=== PATIENT | male | born 1970 | race Caucasian/White ===

== ENCOUNTER 2018-12-03 23:38 | Emergency (ER) | payer OTHER ==
--- NOTE | 2018-12-04 00:06 | ED ---
Complex/Multi-Sys Presentation - HPI Summary HPI Summary: This patient is a 48 year old M BIBA to ED via EMS with a chief complaint of tremors since 2199. Earlier today, [place] the entire time, but did not have water after returning. He finished the run at noon. Today patient had three glasses of wine and three beers over six hours since 1529. While getting ready for bed, patient developed leg tremors. Eventually, the tremors progressed to his whole body. Patient iced his legs for an hour straight. He reports feeling really cold. In the ED room, patient reports feeling out of it. Patient reports CP, SOB, dizziness, abdominal fullness, nausea, subjective fever. Patient denies vomiting. The patient rates the pain 6/10 in severity. Symptoms aggravated by nothing. Symptoms alleviated by nothing. - History Of Current Complaint Chief Complaint: EDChestPainROMI Time Seen by Provider: 12/03/18 23:54 Hx Obtained From: Patient Onset/Duration: Sudden Onset, Lasting Hours - Since 2199, Worse Since Timing: Constant Severity Currently: Mild Severity Initially: Mild Location: Pain At: - CP Aggravating Factor(s): Nothing Alleviating Factor(s): Nothing Associated Signs And Symptoms: Positive: Dizziness, SOB, Chest Pain, Nausea, Abdominal Pain - "Fullness", Fever, Other - Body tremors. Negative: Vomiting - Allergies/Home Medications Allergies/Adverse Reactions: Allergies Allergy/AdvReac Type Severity Reaction Status Date / Time Penicillins Allergy Unknown Verified 12/03/18 23:42 Reaction Details Home Medications: Home Medications ALPRAZolam TAB* [Xanax TAB*] 0.25 mg PO Q6H PRN 12/03/18 [History Confirmed 06/22] Sertraline* [Zoloft*] 150 mg PO DAILY 12/03/18 [History Confirmed 12/03/18] PMH/Surg Hx/FS Hx/Imm Hx Cardiovascular History: Denies: Hx Angina, Hx Congenital Heart Disease Respiratory History: Denies: Hx Asthma GI History: Reports: Hx Gastroesophageal Reflux Disease - Surgical History Surgery Procedure, Year, and Place: Left knee (1995) Infectious Disease History: No Infectious Disease History: Denies: Traveled Outside the [place] in Last 30 Days - Family History Known Family History: Positive: Other - Colon cancer in mother father and sister - Social History Alcohol Use: Weekly - Beer mostly Hx Substance Use: No Substance Use Type: Reports: None Hx Tobacco Use: No Smoking Status (MU): Never Smoked Tobacco Review of Systems Positive: Fever - Subjective, Chills Positive: Chest Pain Positive: Shortness Of Breath Positive: Abdominal Pain - "Fullness", Nausea. Negative: Vomiting Musculoskeletal: Other - Leg tremors/shakes that spread to entire body Neurological: Other - Dizziness All Other Systems Reviewed And Are Negative: Yes Physical Exam - Summary Physical Exam Summary: Appearance: Well-appearing, Well-nourished, lying in bed comfortable Skin: Warm, dry, no obvious rash Eyes: sclera anicteric, no conjunctival pallor ENT: mucous membranes moist Neck: deferred Respiratory: No signs of respiratory distress Cardiovascular: Appears well perfused, pulses are nml Abdomen: deferred Musculoskeletal: Moving all 4 extremities without obvious discomfort Neurological: Awake and alert, mentation is normal, speech is fluent and appropriate Psychiatric: affect is normal, does not appear anxious or depressed Triage Information Reviewed: Yes Vital Signs On Initial Exam: Initial Vitals Temp Pulse Resp BP Pulse Ox 99.4 F 82 22 137/95 99 12/03/18 23:39 12/03/18 23:39 12/03/18 23:39 12/03/18 23:39 12/03/18 23:39 Vital Signs Reviewed: Yes Diagnostics - Vital Signs Vital Signs Temp Pulse Resp BP Pulse Ox 12/03/18 23:39 99.4 F 82 22 137/95 99 - Laboratory Result Diagrams: 12/04/18 00:35 12/04/18 00:35 Lab Statement: Any lab studies that have been ordered have been reviewed, and results considered in the medical decision making process. - Radiology CXR Radiology Interpretation Completed By: ED Physician Summary of Radiographic Findings: No acute processes, pending official radiology report. - EKG 9619 Cardiac Rate: NL - 76 BPM EKG Rhythm: Sinus Rhythm ST Segment: Normal Ectopy: None Summary of EKG Findings: NSR at 76 BPM P waves, QRS complex, and T waves are within normal limits, T waves and intervals are normal, no ischemic changes. This is a normal EKG. Re-Evaluation - Re-Evaluation First Eval Re-Evaluation Time: 02:17 Comment: Discuss results with patient. Patient will be discharged home with dx of myalgia. Patient understands and agrees with this plan. Complex Multi-Symp Course/Dx Course Of Treatment: This patient is a 48 year old M BIBA to ED via EMS with a chief complaint of tremors since 2199. EKG at 2339 revealed NSR at 76 BPM P waves, QRS complex, and T waves are within normal limits, T waves and intervals are normal, no ischemic changes. This is a normal EKG. In the ED course patient received fluids. CXR revealed No acute processes, pending official radiology report. Blood work revealed RBC 4.05, Hgb 13.5, Hct 38, MCH 33, Potassium 3.4, glucose 127, calcium 8.4, total protein 6.2. Patient will be discharged home with dx of myalgia. Patient understands and agrees with this plan. - Diagnoses Differential Diagnoses/HQI/PQRI: Other - rhabdomyolysis, hyponatremia, hypokalemia Provider Diagnoses: Myalgia Discharge - Sign-Out/Discharge Documenting (check all that apply): Patient Departure - Discharge Patient Received Moderate/Deep Sedation with Procedure: No - Discharge Plan Condition: Good Disposition: HOME Patient Education Materials: Musculoskeletal Pain (ED) Referrals: [facility] [Outside] - If Needed Additional Instructions: The lab work we ran [facility] looks good, no sign of the muscle problem I was concerned about or an electrolyte disturbance. Presumably this was an odd reaction to the exertion during the day, perhaps exacerbated by alcohol. In any event your symptoms seem to be improving so it is ok to discharge you from the ER [facility]. I would recommend resting tomorrow. I do not expect things to recur or worsen, so if that happens we should see you back here. - Billing Disposition and Condition Condition: GOOD Disposition: Home - Attestation Statements Document Initiated by Cesar: Yes Documenting Scribe: Medardo Diaz Provider For Whom Cesar is Documenting (Include Credential): Jamar Martinez MD Scribe Attestation: I, Medardo Diaz, scribed for Jamar Martinez MD on 12/04/18 at 2101. Scribe Documentation Reviewed: Yes Provider Attestation: The documentation as recorded by the Medardo flores accurately reflects the service I personally performed and the decisions made by me, Jamar Martinez MD Status of Scribe Document: Viewed
[2018-12-04] MEDS ORDERED: NS 0.9% 1000 ML** 2,000 ML IV ONE (00:07)
[2018-12-04 00:48] LABS: ABS Basophils 0.1 10^3/ul (0-0.2); ABS Eosinophils 0.1 10^3/ul (0-0.6); ABS Lymphocytes 1.8 10^3/ul (1.0-4.8); ABS Monocytes 0.7 10^3/ul (0-0.8); ABS Neutrophils 5.1 10^3/ul (1.5-7.7); Eosinophil % 1.2 %; Hematocrit 38 % (42-52); Hemoglobin 13.5 g/dL (14.0-18.0); Lymphocyte % 23.2 %; Mean Corpuscular HGB Conc 36 g/dL (31-36); Mean Corpuscular Hemoglobin 33 pg (27-31); Mean Corpuscular Volume 93 fL (80-94); Nucleated Red Blood Cells % 0.1; Platelet Count 191 10^3/uL (150-450); Red Blood Count 4.05 10^6 /uL (4.18-5.48); Red Cell Distribution Width 13 % (10-15); White Blood Count 7.8 10^3/uL (3.5-10.8)
[2018-12-04 00:49] LABS: INR 1.02 (0.82-1.09)
[2018-12-04 01:00] LABS: Albumin 3.8 g/dL (3.2-5.2); Albumin/Globulin Ratio 1.6 (1-3); BUN/Creatinine Ratio 17.8 (8-20); Calcium 8.4 mg/dL (8.6-10.3); EGFR African American 95.8 (>60); EGFR Non-African American 79.2 (>60); Globulin 2.4 g/dL (2-4); Potassium 3.4 mmol/L (3.5-5.0); Total Bilirubin 0.4 mg/dL (0.2-1.0); Total Protein 6.2 g/dL (6.4-8.9)
[2018-12-04 01:02] LABS: Troponin I 0.01 ng/mL (<0.04)
[2018-12-04 02:26] VITALS: BP 118/69
== END 2018-12-04 02:26 | disposition home or self-care (01) ==
LOC: ED 23:38
DX: M79.10 Myalgia, unspecified site (principal); R06.02 Shortness of breath; R07.89 Other chest pain; R42 Dizziness and giddiness; R11.0 Nausea; R50.9 Fever, unspecified; Z88.0 Allergy status to penicillin
CPT/HCPCS: 36415; 71046; 80053; 82550; 84484; 85025; 85610; 96360; 99283